=== PATIENT | female | born 1935 | race Caucasian/White ===

== ENCOUNTER 2016-07-13 18:18 | Emergency (ER) | payer OTHER ==
[~2016-07-13] VITALS: Ht 157.5 cm; Wt 88.9 kg
[~2016-07-13 18:18] MED LIST: ALENDRONATE SOD70 MG PO; CALCIUM500 M4 PO; CEFDINIR300 MG PO; CEFUROXIME250 MG PO; COUMADIN,JANTOVE4 MG PO; COUMADIN3 M1 PO; ENDOCET 5-3251 EACH PO; FOSAMAX; FUROSEMIDE40 MG PO; K-DUR20 MEQ PO; KEFLEX500 MG PO; KETOCONAZOLE60 GM TP; LIDODERM 5% P1 PATCH TD; MUPIROCIN22 GM TP; NORCO 5/3251 TABLET PO; OMEPRAZOLE20 M2 PO; OXAYDO5 MG PO; PHENOBARBITAL64.8 MG PO; SIMVASTATIN40 MG PO; TYLENOL EXTRA500 MG PO; WARFARIN SODIUM1 MG PO; Zocor PO
[2016-07-13 19:07] LABS: HEMATOCRIT 40.1 % (36.0-46.0); MCHC 31.4 G/DL (30.0-36.0); MCV 95.5 FL (83-99); MEAN PLAT.VOLUME 10.1 uM^3 (9.5-12.4); PLATELET COUNT 210 K/uL (156-360); RBC DIS.WIDTH-CV 14.4 % (11.8-14.6); RBC DIS.WIDTH-SD 47.5 % (39-53)
[2016-07-13 19:21] LABS: CHLORIDE 109 mEq/L (99-109); POTASSIUM 5.2 mEq/L (3.7-5.4); SODIUM 139 mEq/L (136-147)
[2016-07-13 19:24] LABS: GLUCOSE 135 mg/dL (70-99)
[2016-07-13 19:25] LABS: ANION GAP 11 MEQ/L (2-14); TOTAL BILIRUBIN 0.3 mg/dL (0.0-1.0)
[2016-07-13 19:27] LABS: ALKALINE PHOSPHATASE 69 IU/L (3-129); GFR ESTIMATE (CALCULATED) > 59 mL/min/
[2016-07-13 19:28] LABS: UREA NITROGEN (BUN) 19 mg/dL (9-23)
[2016-07-13 19:31] LABS: LIPASE 12 U/L (1.0-51.0)
[2016-07-13 19:35] LABS: DIRECT BILIRUBIN 0.1 mg/dL (0.0-0.3)
[2016-07-13 20:19] LABS: ADD MIUA? YES; BILIRUBIN NEGATIVE; BLOOD MODERATE; COLOR YELLOW ((YELLOW)); GLUCOSE (STRIP) NEGATIVE; KETONES NEGATIVE; LEUKOCYTES SMALL; NITRITE POSITIVE; PROTEIN (STRIP) NEGATIVE; SPECIFIC GRAVITY 1.024 (1.000-1.030); UROBILINOGEN 0.2 MG/DL (0.2-1.0)
[2016-07-13 20:39] LABS: BACTERIA 3+; CASTS PRESENT /LPF; CRYSTALS NONE SEEN; EPITHELIAL CELLS 1+; HYALINE CASTS 0-5 /LPF; MUCUS 1+; UCUL ADDED? YES
[2016-07-13] MEDS ORDERED: CIPRO500 MG PO (21:08)
[2016-07-13] MEDS ORDERED: PERCOCET 5/31 TABLET PO (21:08)
[2016-07-13] MEDS ORDERED: ZOFRAN4 MG PO (21:12)
[2016-07-13 23:29] VITALS: BP 148/78
== END 2016-07-13 23:30 | disposition home or self-care (01) ==
LOC: EME 18:18
PROVIDERS: Emergency Medicine
DX: S22.31XA Fracture of one rib, right side, initial encounter for closed fracture (principal); N39.0 Urinary tract infection, site not specified; R56.9 Unspecified convulsions; Z87.442 Personal history of urinary calculi; Z86.718 Personal history of other venous thrombosis and embolism; Z86.711 Personal history of pulmonary embolism
CPT/HCPCS: 72131; 74176; 80048; 80076; 81003; 83690; 85027; 87086; 99281; 99285; J0744; J2270; J2405; J7030